=== PATIENT | female | born 1990 | race Caucasian/White ===

== ENCOUNTER 2016-11-16 09:55 | Emergency (ER) | payer MEDICAID ==
[~2016-11-16] VITALS: Ht 157.5 cm; Wt 158.8 kg
[2016-11-16 09:55] VITALS: BP 165/90; PULSE 90; RESP 18; TEMP 97.7; O2SAT 96
[2016-11-16 10:52] LABS: STREPTOCOCCUS A SCREEN (RAPID) NEGATIVE (NEGATIVE)
[2016-11-16 11:41] LABS: MONOTEST NEGATIVE (NEGATIVE)
[2016-11-16 11:42] VITALS: BP 155/88; PULSE 81; RESP 16; TEMP 98.1; O2SAT 97
== END 2016-11-16 11:42 | disposition home or self-care (01) ==
LOC: SED 09:55
DX: J02.9 Acute pharyngitis, unspecified (principal); Z88.0 Allergy status to penicillin
CPT/HCPCS: 36415; 86308-TC; 86403; 87081; 99284

== ENCOUNTER 2017-03-27 11:27 | Emergency (ER) | payer MEDICAID ==
[~2017-03-27] VITALS: Ht 157.5 cm; Wt 158.8 kg
[2017-03-27 11:27] VITALS: BP_SYST 160
[2017-03-27 13:28] LABS: BILIRUBIN,URINE NEGATIVE (NEGATIVE); BLOOD, URINE 3+ (NEGATIVE); CLARITY/URINE SL CLOUDY (CLEAR); COLOR,URINE RED (YELLOW); GLUCOSE,URINE NEGATIVE (NEGATIVE); KETONES,URINE NEGATIVE (NEGATIVE); LEUKOCYTE ESTERASE ,URINE NEGATIVE (NEGATIVE); NITRITE, URINE NEGATIVE (NEGATIVE); PH,URINE 5.5 (5.0-8.0); PROTEIN URINE 2+ (NEGATIVE); UROBILINOGEN,URINE 0.2 (0.2-1.0)
[2017-03-27 13:36] LABS: BACTERIA,URINE FEW /HPF (None Seen); RBC,URINE >100 /HPF (0-3); WBC,URINE 0-3 /HPF (0-3)
[2017-03-27 13:43] LABS: BASOPHILS # (AUTO) 0.1 K/uL (0.0-0.2); BASOPHILS % (AUTO) 0.8 % (0.0-2.0); EOSINOPHILS # (AUTO) 0.1 K/uL (0.0-0.4); EOSINOPHILS % (AUTO) 1.5 % (0.0-4.0); HEMATOCRIT 33.9 % (36-48); HEMOGLOBIN 10.9 g/dL (12.0-16.0); LYMPHOCYTES # (AUTO) 1.9 K/uL (1.0-5.5); MEAN CORPUSCULAR HEMOGLOBIN 25 pg (27-31); MEAN CORPUSCULAR HGB CONC 32 % (32-36); MEAN CORPUSCULAR VOLUME 77 fL (79.0-98.0); MONOCYTES # (AUTO) 0.4 K/uL (0.0-1.0); MONOCYTES % (AUTO) 6.1 % (1.7-9.3); NEUTROPHILS # (AUTO) 4.7 K/uL (1.8-7.7); NEUTROPHILS % (AUTO) 64.6 % (40.0-70.0); PLATELET COUNT (AUTO) 238 K/uL (130-430); RED BLOOD CELL COUNT(AUTO) 4.39 MIL/uL (4.2-6.2); RED CELL DISTRIBUTION WIDTH 14.5 % (9.0-15.0); WHITE BLOOD COUNT (AUTO) 7.2 K/uL (4.8-10.8)
[2017-03-27 13:45] LABS: CALCIUM 8.7 mg/dL (8.4-11.0); CREATININE 0.6 mg/dL (0.55-1.30); POTASSIUM 4.2 mmol/L (3.5-5.1); PROTHROMBIN TIME 11.3 SECS (9.5-12.5)
[2017-03-27 13:57] LABS: ALBUMIN 3.4 g/dL (3.4-4.8); TOTAL BILIRUBIN 0.3 mg/dL (0.0-1.0); TOTAL PROTEIN, SERUM 7.6 g/dL (6.4-8.3)
[2017-03-27 15:53] VITALS: BP_SYST 154
== END 2017-03-27 14:35 | disposition home or self-care (01) ==
LOC: SED 11:30
DX: N93.8 Other specified abnormal uterine and vaginal bleeding (principal); Z88.0 Allergy status to penicillin
CPT/HCPCS: 36415; 76856-TC; 80053; 81000-TC; 81025; 84702-TC; 85025; 85610-TC; 86900; 86901; 99285

== ENCOUNTER 2017-07-09 16:17 | Emergency (ER) | payer MEDICAID ==
[~2017-07-09] VITALS: Ht 157.5 cm; Wt 158.8 kg
[2017-07-09 16:36] VITALS: BP_SYST 150
--- NOTE | 2017-07-09 16:41 | NUR ---
Patient triaged and placed in waiting room. VSS and patient appears in no acute distress at this time. Accompanied by boyfriend, awaiting available bed, and MD notified of need for MSE.
--- NOTE | 2017-07-09 17:38 | NUR ---
PT to hallway bed 1
--- NOTE | 2017-07-09 17:45 | NUR ---
Patient to ER via triage with c/o "Allergies flaring up" Patient reports that her throat is irritated, denies pain/just irritated. Patient also c/o nasal congestion. Patient denies having recent cold or flu symptoms. Patient able to ambulate to [facility] in hallway with slow, steady gait-no c/o pain or sob upon exertion. Patient sitting quietly on [facility], in nad. Awaiting evaluation by ER MD-will continue to observe and assess.
--- NOTE | 2017-07-09 18:00 | NUR ---
Dr Call at bedside to evaluate patient.
[2017-07-09 18:24] LABS: BILIRUBIN,URINE NEGATIVE (NEGATIVE); BLOOD, URINE NEGATIVE (NEGATIVE); CLARITY/URINE HAZY (CLEAR); COLOR,URINE YELLOW (YELLOW); GLUCOSE,URINE NEGATIVE (NEGATIVE); KETONES,URINE NEGATIVE (NEGATIVE); LEUKOCYTE ESTERASE ,URINE 1+ (NEGATIVE); NITRITE, URINE NEGATIVE (NEGATIVE); PROTEIN URINE 1+ (NEGATIVE); UROBILINOGEN,URINE 0.2 (0.2-1.0)
--- NOTE | 2017-07-09 18:25 | NUR ---
Patient given written and verbal discharge instructions and verbalizes understanding. ER MD discussed with patient the results and treatment provided. Patient in stable condition. ID arm band removed. Rx of Zyrtec, Flonase given. Patient educated on pain management and to follow up with PMD. Pain Scale 2. Opportunity for questions provided and answered.
[2017-07-09 18:38] LABS: BACTERIA,URINE FEW /HPF (None Seen); RBC,URINE 0-3 /HPF (0-3)
== END 2017-07-09 18:25 | disposition home or self-care (01) ==
LOC: SED 16:17
DX: J30.2 Other seasonal allergic rhinitis (principal); Z88.0 Allergy status to penicillin; Z88.1 Allergy status to other antibiotic agents
CPT/HCPCS: 81000-TC; 81025; 87086; 99284

== ENCOUNTER 2017-09-11 15:46 | Emergency (ER) | payer MEDICAID ==
[~2017-09-11] VITALS: Ht 157.5 cm; Wt 113.4 kg
[2017-09-11 16:02] VITALS: BP_SYST 134
[2017-09-11] MEDS ORDERED: IBUPROFEN 800 MG TABLET PO ONE (17:30)
[2017-09-11] MEDS ORDERED: DEXAMETHASONE SOD PHOSPHATE 10 MG/ML VIAL IM ONE (17:30)
== END 2017-09-11 18:40 | disposition home or self-care (01) ==
LOC: SED 15:46
DX: J02.9 Acute pharyngitis, unspecified (principal); H66.92 Otitis media, unspecified, left ear; R03.0 Elevated blood-pressure reading, without diagnosis of hypertension; J45.909 Unspecified asthma, uncomplicated; E66.9 Obesity, unspecified; Z68.42 Body mass index [BMI] 45.0-49.9, adult; Z88.0 Allergy status to penicillin; Z88.1 Allergy status to other antibiotic agents
CPT/HCPCS: 36415; 81025; 86403; 87081; 96372; 99284; J1100

== ENCOUNTER 2017-09-16 06:50 | Emergency (ER) | payer MEDICAID ==
[~2017-09-16] VITALS: Ht 157.5 cm; Wt 158.8 kg
[2017-09-16 07:07] VITALS: BP_SYST 125
--- NOTE | 2017-09-16 07:11 | NUR ---
Pt to bed 7
--- NOTE | 2017-09-16 07:14 | NUR ---
EMILY Green at bedside examining patient.
--- NOTE | 2017-09-16 07:15 | NUR ---
Pt complains of sore throat and cough since Tuesday. Pt states was here in the ER and received an ATB and steroid shot but has been coughing up blood this morning. Pt denies fever, n/v or diarrhea. No other injuries/complaints per pt or noted.
[2017-09-16] MEDS ORDERED: ALBUTEROL SULFATE 0.083% 2.5 MG/3 ML VIAL.NEB INH ONE (07:30)
--- NOTE | 2017-09-16 08:25 | NUR ---
Medication was given to pt, tolerated it well. No noted adverse reaction at this time, will continue to monitor.
[2017-09-16] MEDS ORDERED: LEVOFLOXACIN 500 MG TABLET PO ONE (08:30)
[2017-09-16] MEDS ORDERED: IBUPROFEN 800 MG TABLET PO ONE (08:30)
--- NOTE | 2017-09-16 08:59 | NUR ---
Patient given written and verbal discharge instructions and verbalizes understanding. ER MD discussed with patient the results and treatment provided. Patient in stable condition. ID arm band removed. Rx of cipro, motrin and promethazine given. Patient educated on pain management and to follow up with PMD. Pain Scale 2. Opportunity for questions provided and answered.
[2017-09-16 09:03] VITALS: BP_SYST 120
== END 2017-09-16 09:03 | disposition home or self-care (01) ==
LOC: SED 06:50
DX: J40 Bronchitis, not specified as acute or chronic (principal); J45.909 Unspecified asthma, uncomplicated; Z88.0 Allergy status to penicillin; Z88.1 Allergy status to other antibiotic agents
CPT/HCPCS: 71010; 94640; 99283

== ENCOUNTER 2018-01-28 13:23 | Emergency (ER) | payer MEDICAID ==
[~2018-01-28] VITALS: Ht 157.5 cm; Wt 145.1 kg
[2018-01-28 13:26] VITALS: BP_SYST 126
[2018-01-28] MEDS ORDERED: ALBUTEROL SULFATE 0.083% 2.5 MG/3 ML VIAL.NEB IH ONE (13:45)
[2018-01-28] MEDS ORDERED: methylPREDNISolone SOD SUCC/PF 62.5 MG/ML VIAL IVP ONE (13:45)
[2018-01-28] MEDS ORDERED: IPRATROPIUM BROM 0.5 MG/2.5 ML VIAL.NEB (ATROVENT) IH ONE (13:45)
[2018-01-28] MEDS ORDERED: MAGNESIUM SULFATE 50 ML IV ONE (13:45)
[2018-01-28 14:10] LABS: BASOPHILS # (AUTO) 0.1 K/uL (0.0-0.2); BASOPHILS % (AUTO) 0.9 % (0.0-2.0); EOSINOPHILS # (AUTO) 0.1 K/uL (0.0-0.4); EOSINOPHILS % (AUTO) 1.7 % (0.0-4.0); HEMATOCRIT 31.7 % (36-48); HEMOGLOBIN 10.5 g/dL (12.0-16.0); MEAN CORPUSCULAR HEMOGLOBIN 25 pg (27-31); MEAN CORPUSCULAR HGB CONC 33 % (32-36); MEAN CORPUSCULAR VOLUME 75 fL (79.0-98.0); MONOCYTES # (AUTO) 0.4 K/uL (0.0-1.0); NEUTROPHILS # (AUTO) 4.2 K/uL (1.8-7.7); NEUTROPHILS % (AUTO) 61.4 % (40.0-70.0); PLATELET COUNT (AUTO) 238 K/uL (130-430); RED BLOOD CELL COUNT(AUTO) 4.26 MIL/uL (4.2-6.2); RED CELL DISTRIBUTION WIDTH 15.8 % (9.0-15.0); WHITE BLOOD COUNT (AUTO) 6.8 K/uL (4.8-10.8)
[2018-01-28 14:20] LABS: CALCIUM 9.3 mg/dL (8.4-11.0); CREATININE 0.62 mg/dL (0.55-1.30); POTASSIUM 3.7 mmol/L (3.5-5.1)
[2018-01-28 14:24] LABS: ALBUMIN 3.2 g/dL (3.4-4.8); TOTAL BILIRUBIN 0.4 mg/dL (0.0-1.0)
[2018-01-28 14:47] VITALS: BP_SYST 153
== END 2018-01-28 14:47 | disposition home or self-care (01) ==
LOC: SED 13:23
DX: J45.901 Unspecified asthma with (acute) exacerbation (principal); F41.9 Anxiety disorder, unspecified; E66.01 Morbid (severe) obesity due to excess calories; Z68.43 Body mass index [BMI] 50.0-59.9, adult; Z88.0 Allergy status to penicillin
CPT/HCPCS: 36415; 80053; 83690; 85025; 94640; 96365; 96375; 99284; J2930; J3475; J7613

== ENCOUNTER 2018-03-12 14:18 | Emergency (ER) | payer MEDICAID ==
[~2018-03-12] VITALS: Ht 157.5 cm; Wt 158.8 kg
[2018-03-12 14:25] VITALS: BP_SYST 151
[2018-03-12] MEDS ORDERED: PROCHLORPERAZINE EDISYLATE 10 MG/2 ML VIAL IVP ONE (14:45)
[2018-03-12] MEDS ORDERED: NACL 0.9% 1,000 ML IV ONE (14:45)
[2018-03-12] MEDS ORDERED: KETOROLAC TROMETHAMINE 15 MG VIAL IVP ONE (14:45)
[2018-03-12] MEDS ORDERED: DIPHENHYDRAMINE INJ 50 MG/ML VIAL IVP ONE (14:45)
[2018-03-12 15:15] LABS: BILIRUBIN,URINE NEGATIVE (NEGATIVE); BLOOD, URINE 3+ (NEGATIVE); CLARITY/URINE CLEAR (CLEAR); COLOR,URINE YELLOW (YELLOW); GLUCOSE,URINE NEGATIVE (NEGATIVE); KETONES,URINE NEGATIVE (NEGATIVE); LEUKOCYTE ESTERASE ,URINE NEGATIVE (NEGATIVE); NITRITE, URINE NEGATIVE (NEGATIVE); PROTEIN URINE NEGATIVE (NEGATIVE); UROBILINOGEN,URINE 0.2 (0.2-1.0)
[2018-03-12 15:27] LABS: BACTERIA,URINE FEW /HPF (None Seen); MUCUS,URINE None Seen /LPF (None Seen); WBC,URINE 0-3 /HPF (0-3)
[2018-03-12 16:00] VITALS: BP_SYST 148
== END 2018-03-12 16:00 | disposition home or self-care (01) ==
LOC: SED 14:18
DX: R51 Headache (principal); R03.0 Elevated blood-pressure reading, without diagnosis of hypertension; F41.9 Anxiety disorder, unspecified; J45.909 Unspecified asthma, uncomplicated; E66.9 Obesity, unspecified; Z68.44 Body mass index [BMI] 60.0-69.9, adult; Z88.1 Allergy status to other antibiotic agents; Z88.0 Allergy status to penicillin
CPT/HCPCS: 81000; 81025; 96361; 96374; 96375; 99284; J0780; J1200; J1885; J7030

== ENCOUNTER 2018-10-02 00:30 | Emergency (ER) | payer MEDICAID ==
[~2018-10-02] VITALS: Ht 157.5 cm; Wt 136.1 kg
[2018-10-02 00:55] VITALS: BP_SYST 162
--- NOTE | 2018-10-02 01:30 | NUR ---
Patient to ER bed 7 to gown for evaluation. Side rails up. Report given to ARELY Hu.
--- NOTE | 2018-10-02 01:35 | NUR ---
Patient to ER via triage for evaluation of cough, congestion, vomiting, body aches, and sore throat since 09/26/18. Patient is awake, alert and oriented in no acute distress, HR elevated but vital signs otherwise stable, respirations even and unlabored, skin warm and dry to touch. Patient with friend at her side awaiting evaluation by ER MD, will continue to observe and assess.
--- NOTE | 2018-10-02 02:10 | NUR ---
ER Dr. Estrada at bedside examining patient.
[2018-10-02] MEDS ORDERED: LIDOCAINE VISCOUS 2%, 15 ML UDC MM ONE (02:15)
[2018-10-02] MEDS ORDERED: OSELTAMIVIR PHOSPHATE 75 MG CAPSULE PO ONE (02:15)
[2018-10-02] MEDS ORDERED: ACETAMINOPHEN 325 MG TABLET PO ONE (02:30)
--- NOTE | 2018-10-02 03:00 | NUR ---
Patient resting quietly in no acute distress, awaiting dispo. No adverse reaction noted to medication.
[2018-10-02 03:15] VITALS: BP_SYST 150
--- NOTE | 2018-10-02 03:25 | NUR ---
Patient given written and verbal discharge instructions and verbalizes understanding. ER MD discussed with patient the results and treatment provided. Patient in stable condition. ID arm band removed. Rx of Tamiflu, Acetaminophen, Clindamycin given. Patient educated on pain management and to follow up with PMD. Pain Scale 0. Opportunity for questions provided and answered. Medication side effect fact sheet provided. Patient left ER in no acute distress, ambulating without difficulty with slow, steady gait. No adverse reaction noted to medication.
== END 2018-10-02 03:25 | disposition home or self-care (01) ==
LOC: SED 00:30
DX: J11.1 Influenza due to unidentified influenza virus with other respiratory manifestations (principal); F41.9 Anxiety disorder, unspecified; G43.909 Migraine, unspecified, not intractable, without status migrainosus; Z88.0 Allergy status to penicillin; Z88.1 Allergy status to other antibiotic agents
CPT/HCPCS: 36415; 86710; 99283; G9035; J2001

== ENCOUNTER 2021-04-11 12:54 | Emergency (ER) | payer MEDICAID ==
[~2021-04-11] VITALS: Ht 157.5 cm; Wt 136.1 kg
[2021-04-11 12:55] VITALS: BP_SYST 117
[2021-04-11] MEDS ORDERED: CLE150 PO (13:46)
[2021-04-11 14:11] VITALS: BP_SYST 105
[2021-04-11] MEDS ORDERED: DIPH-TET-PERTUS Vaccine 0.5 ML VIAL (ADACEL) I.M. ONE (14:15)
== END 2021-04-11 14:12 | disposition home or self-care (01) ==
LOC: SED 12:54
DX: S91.132A Puncture wound without foreign body of left great toe without damage to nail, initial encounter (principal); J45.909 Unspecified asthma, uncomplicated; F41.9 Anxiety disorder, unspecified; Z88.0 Allergy status to penicillin; Z88.1 Allergy status to other antibiotic agents; W45.0XXA Nail entering through skin, initial encounter; Y93.89 Activity, other specified; Y92.89 Other specified places as the place of occurrence of the external cause; Y99.8 Other external cause status
CPT/HCPCS: 90715; 99283